=== PATIENT | male | born 1985 | race Caucasian/White ===

== ENCOUNTER 2022-06-21 02:15 | Inpatient (IN) | payer OTHER ==
[~2022-06-21] VITALS: Ht 175.3 cm; Wt 84.8 kg
[~2022-06-21 02:15] MED LIST: ALBU1.257 IH; OMEP20CA15 PO
[2022-06-21 02:17] VITALS: BP_SYST 143
[2022-06-21] MEDS ORDERED: ONDANSETRON 4 MG ODT TAB PO ONE (03:00)
[2022-06-21] MEDS ORDERED: FAMOTIDINE 20 MG TABLET PO ONE (03:00)
[2022-06-21] MEDS ORDERED: MAG-AL HYDROX/SIMETH 30 ML UDC PO ONE (03:00)
[2022-06-21 03:34] LABS: BASOPHILS % (AUTO) 0.2 % (0.0-2.0); HEMOGLOBIN 19.5 g/dL (14.0-18.0); LYMPHOCYTES # (AUTO) 1.5 K/uL (1.0-5.5); LYMPHOCYTES % (AUTO) 10.1 % (20.5-51.5); MEAN CORPUSCULAR HEMOGLOBIN 32 pg (27-31); MEAN CORPUSCULAR HGB CONC 35 % (32-36); MEAN CORPUSCULAR VOLUME 90 fL (79.0-98.0); MONOCYTES # (AUTO) 2.5 K/uL (0.0-1.0); MONOCYTES % (AUTO) 17.6 % (1.7-9.3); NEUTROPHILS # (AUTO) 10.3 K/uL (1.8-7.7); NEUTROPHILS % (AUTO) 72.1 % (40.0-70.0); PLATELET COUNT (AUTO) 207 K/uL (130-430); RED BLOOD CELL COUNT(AUTO) 6.14 MIL/uL (4.2-6.2); RED CELL DISTRIBUTION WIDTH 13.4 % (9.0-15.0); WHITE BLOOD COUNT (AUTO) 14.3 K/uL (4.8-10.8)
[2022-06-21 03:40] LABS: CALCIUM 9.4 mg/dL (8.4-11.0); CREATININE 1.73 mg/dL (0.55-1.30)
[2022-06-21 03:51] LABS: ALBUMIN 4.5 g/dL (3.4-4.8); PHOSPHORUS 4.4 mg/dL (2.7-4.5); THYROID STIMULATING HORMONE 0.74 uIu/mL (0.34-4.82); TOTAL BILIRUBIN 0.8 mg/dL (0.0-1.0)
[2022-06-21] MEDS ORDERED: NACL 0.9% 1,000 ML IV ONE ×2 (04:00→06:00)
[2022-06-21 04:27] LABS: BILIRUBIN,URINE NEGATIVE (NEGATIVE); CLARITY/URINE CLEAR (CLEAR); COLOR,URINE YELLOW (YELLOW); GLUCOSE,URINE NEGATIVE (NEGATIVE); KETONES,URINE NEGATIVE (NEGATIVE); LEUKOCYTE ESTERASE ,URINE NEGATIVE (NEGATIVE); NITRITE, URINE NEGATIVE (NEGATIVE); PROTEIN URINE TRACE (NEGATIVE); UROBILINOGEN,URINE 0.2 (0.2-1.0)
[2022-06-21 04:29] LABS: BLOOD, URINE TRACE (NEGATIVE)
[2022-06-21 04:32] LABS: CKMB RELATIVE INDEX 0.6 (0.0-2.9); CREATINE KINASE MB 5.1 ng/mL (0-3.6)
[2022-06-21 04:36] LABS: BACTERIA,URINE RARE /HPF (None Seen); MUCUS,URINE None Seen /LPF (None Seen); RBC,URINE 0-3 /HPF (0-3); WBC,URINE NONE SEEN /HPF (0-3)
[2022-06-21 04:49] LABS: BARBITURATE, URINE NEGATIVE (NEG <=200); BENZODIAZEPINE, URINE NEGATIVE (NEG <=150); CANNABINOID, URINE POSITIVE (NEG <=50); COCAINE, URINE NEGATIVE (NEG <=150); METHAMPHETAMINES SCREEN,URINE NEGATIVE (NEG <=500); OPIATE, URINE NEGATIVE (NEG <=100); PHENCYCLIDINE SCREEN,URINE NEGATIVE (NEG <=25); UR TRICYCLIC ANTIDEPRESSANTS NEGATIVE (NEG <=300); URINE AMPHETAMINE NEGATIVE (NEG <=500); URINE METHADONE NEGATIVE (NEG <=200); URINE OXYCODONE SCREEN NEGATIVE (NEG <=100); URINE PROPOXYPHENE SCREEN NEGATIVE (NEG <=300)
[2022-06-21] MEDS: NACL 0.9% 1,000 ML IV SCH ×2 (09:15→15:35)
[2022-06-21] MEDS ORDERED: NON-FORMULARY MEDICATION (Albuterol Sulfate 1.25 MG) IH SCH (09:15)
[2022-06-21] MEDS ORDERED: DOCUSATE SODIUM 100 MG CAPSULE PO PRN (09:15)
[2022-06-21] MEDS ORDERED: MAGNESIUM SULFATE 50 ML IV PRN (09:15)
[2022-06-21] MEDS ORDERED: MUPIROCIN 2% TOPICAL OINTMENT 22 GM NS PRN (09:15)
[2022-06-21] MEDS ORDERED: ACETAMINOPHEN 325 MG TABLET PO PRN (09:15)
[2022-06-21] MEDS ORDERED: ZOLPIDEM TARTRATE 5 MG TABLET PO PRN (09:15)
[2022-06-21] MEDS ORDERED: LORazepam 2 MG/ML VIAL IVP PRN (09:15)
[2022-06-21] MEDS ORDERED: MORPHINE 2 MG/ML INJ. SYRINGE IVP PRN ×2 (09:15)
[2022-06-21] MEDS ORDERED: POTASSIUM CHLORIDE 20 MEQ TAB.PRT.SR PO PRN (09:15)
[2022-06-21] MEDS ORDERED: ONDANSETRON HCL 4 MG/2 ML VIAL IVP PRN (09:15)
[2022-06-21] MEDS ORDERED: ALBUTEROL SULFATE 0.083% 2.5 MG/3 ML VIAL.NEB INH PRN (09:45)
[2022-06-21] MEDS ORDERED: IPRATROPIUM/ALBUTEROL SULFATE 3 ML AMPUL.NEB (DUONEB) INH PRN (10:15)
[2022-06-21] MEDS ORDERED: lisinopriL 5 MG TABLET PO ONE (10:15)
[2022-06-21] MEDS ORDERED: ALBMDI INH (10:19)
[2022-06-21] MEDS ORDERED: LISINOPRIL 10 MG TABLET (PRINIVIL) ONE (12:24)
[2022-06-21] MEDS ORDERED: PANTOPRAZOLE SODIUM 40 MG TAB PO ONE (16:00)
[2022-06-21 16:05] VITALS: BP_SYST 150
[2022-06-21 17:29] VITALS: BP_SYST 150
[2022-06-21 20:00] VITALS: BP_SYST 134
[2022-06-22] VITALS: BP_SYST 131
[2022-06-22] MEDS: NACL 0.9% 1,000 ML IV SCH ×2 (00:23→06:21)
[2022-06-22 05:45] LABS: BASOPHILS # (AUTO) 0.1 K/uL (0.0-0.2); EOSINOPHILS % (AUTO) 0.2 % (0.0-4.0); HEMOGLOBIN 14.9 g/dL (14.0-18.0); LYMPHOCYTES # (AUTO) 1.9 K/uL (1.0-5.5); LYMPHOCYTES % (AUTO) 31.1 % (20.5-51.5); MEAN CORPUSCULAR HEMOGLOBIN 32 pg (27-31); MEAN CORPUSCULAR HGB CONC 35 % (32-36); MEAN CORPUSCULAR VOLUME 92 fL (79.0-98.0); MONOCYTES # (AUTO) 1.3 K/uL (0.0-1.0); MONOCYTES % (AUTO) 22.4 % (1.7-9.3); NEUTROPHILS # (AUTO) 2.7 K/uL (1.8-7.7); NEUTROPHILS % (AUTO) 45.3 % (40.0-70.0); PLATELET COUNT (AUTO) 148 K/uL (130-430); RED CELL DISTRIBUTION WIDTH 13.5 % (9.0-15.0)
[2022-06-22 05:55] LABS: CALCIUM 8.1 mg/dL (8.4-11.0); CREATININE 0.81 mg/dL (0.55-1.30)
[2022-06-22 06:20] LABS: CKMB RELATIVE INDEX 0.4 (0.0-2.9); CREATINE KINASE MB 1.5 ng/mL (0-3.6)
[2022-06-22 08:16] VITALS: BP_SYST 139
[2022-06-22] MEDS ORDERED: lisinopriL 5 MG TABLET PO SCH (09:00)
[2022-06-22] MEDS ORDERED: PANTOPRAZOLE SODIUM 40 MG TAB PO SCH (09:00)
[2022-06-22 11:19] VITALS: BP_SYST 134
[2022-06-22 11:50] VITALS: BP_SYST 134
== END 2022-06-22 11:58 | disposition home or self-care (01) | DRG 351 ==
LOC: SED 02:15 → SMU 09:19
PROVIDERS: ADMIT General Practice; ATTEND General Practice
DX: M62.82 Rhabdomyolysis (principal); N17.0 Acute kidney failure with tubular necrosis; E86.0 Dehydration; Z20.822 Contact with and (suspected) exposure to COVID-19
CPT/HCPCS: 36415; 71045; 76376; 80048; 80053; 80307; 81000; 82550; 82553; 83036; 83615; 83690; 83735; 84100; 84443; 85025; 96360; 96361; 99285; J7030; Q0162